=== PATIENT | female | born 1995 | race Caucasian/White ===

== ENCOUNTER 2022-04-11 07:16 | Emergency (ER) | payer MEDICAID ==
[~2022-04-11] VITALS: Ht 162.6 cm; Wt 68.0 kg
[2022-04-11 07:23] VITALS: BP_SYST 107
--- NOTE | 2022-04-11 07:30 | NUR ---
Placed in room 05 . Placed on cardiac exercise physiologist, blood pressure machine and pulse oximeter. To gown for exam. Side rails up. Report given to SURYA LYNN.
--- NOTE | 2022-04-11 07:31 | NUR ---
ER DR. JAIN EXAMINING PT
[2022-04-11 07:53] LABS: BASOPHILS # (AUTO) 0.1 K/uL (0.0-0.2); BASOPHILS % (AUTO) 0.4 % (0.0-2.0); HEMATOCRIT 34.6 % (36-48); HEMOGLOBIN 11.4 g/dL (12.0-16.0); LYMPHOCYTES # (AUTO) 1.6 K/uL (1.0-5.5); LYMPHOCYTES % (AUTO) 10.2 % (20.5-51.5); MEAN CORPUSCULAR HEMOGLOBIN 29 pg (27-31); MEAN CORPUSCULAR HGB CONC 33 % (32-36); MEAN CORPUSCULAR VOLUME 89 fL (79.0-98.0); MONOCYTES # (AUTO) 0.7 K/uL (0.0-1.0); MONOCYTES % (AUTO) 4.8 % (1.7-9.3); NEUTROPHILS % (AUTO) 84.6 % (40.0-70.0); PLATELET COUNT (AUTO) 294 K/uL (130-430); RED CELL DISTRIBUTION WIDTH 12.9 % (9.0-15.0); WHITE BLOOD COUNT (AUTO) 15.3 K/uL (4.8-10.8)
[2022-04-11 08:11] LABS: CALCIUM 8.6 mg/dL (8.4-11.0); CREATININE 0.57 mg/dL (0.55-1.30)
[2022-04-11 08:15] LABS: ALBUMIN 3.4 g/dL (3.4-4.8); C-REACTIVE PROTEIN QUANT 12.4 mg/dL (0-0.5); TOTAL BILIRUBIN 0.5 mg/dL (0.0-1.0)
[2022-04-11] MEDS ORDERED: cefTRIAXone 1 GM in LIDOCAINE 1%, 20 ML MDV 2.1 ML IM ONE (10:00)
[2022-04-11] MEDS ORDERED: IBUP-1969 PO (10:22)
[2022-04-11] MEDS ORDERED: CLIN-142 PO (10:22)
[2022-04-11 10:26] LABS: BARBITURATE, URINE NEGATIVE (NEG <=200); BENZODIAZEPINE, URINE NEGATIVE (NEG <=150); CANNABINOID, URINE NEGATIVE (NEG <=50); COCAINE, URINE NEGATIVE (NEG <=150); METHAMPHETAMINES SCREEN,URINE NEGATIVE (NEG <=500); OPIATE, URINE NEGATIVE (NEG <=100); PHENCYCLIDINE SCREEN,URINE NEGATIVE (NEG <=25); UR TRICYCLIC ANTIDEPRESSANTS NEGATIVE (NEG <=300); URINE AMPHETAMINE NEGATIVE (NEG <=500); URINE METHADONE NEGATIVE (NEG <=200); URINE OXYCODONE SCREEN NEGATIVE (NEG <=100); URINE PROPOXYPHENE SCREEN NEGATIVE (NEG <=300)
[2022-04-11 12:18] VITALS: BP_SYST 126
--- NOTE | 2022-04-11 12:19 | NUR ---
Patient given written and verbal discharge instructions and verbalizes understanding. ER MD DR JAIN discussed with patient the results and treatment provided. Patient in stable condition. ID arm band removed. Rx of CLINDAMYCIN, MOTRIN given. Patient educated on pain management and to follow up with PMD. Pain Scale 4/10. Opportunity for questions provided and answered. Medication side effect fact sheet provided.
== END 2022-04-11 12:18 | disposition home or self-care (01) ==
LOC: SED 07:16
DX: R10.30 Lower abdominal pain, unspecified (principal); N61.0 Mastitis without abscess; R50.9 Fever, unspecified; M79.10 Myalgia, unspecified site; Z79.899 Other long term (current) drug therapy
CPT/HCPCS: 99284; 74176; 80307; 80053; 82150; 84703; 83690; 85025; 86140; 36415; 76376; 81025; 96372; 83605; J0696; J2001

== ENCOUNTER 2022-12-19 23:35 | Emergency (ER) | payer MEDICAID ==
[~2022-12-19] VITALS: Ht 162.6 cm; Wt 72.6 kg
[~2022-12-19 23:35] MED LIST: CLIN-142 PO; IBUP-1969 PO
[2022-12-19 23:48] VITALS: BP_SYST 113; PULSE 74; RESP 20; TEMP 97.9; O2SAT 97
[2022-12-20 01:00] LABS: BILIRUBIN,URINE NEGATIVE (NEGATIVE); BLOOD, URINE NEGATIVE (NEGATIVE); CLARITY/URINE Clear (CLEAR); COLOR,URINE YELLOW (YELLOW); GLUCOSE,URINE NEGATIVE (NEGATIVE); KETONES,URINE NEGATIVE (NEGATIVE); LEUKOCYTE ESTERASE ,URINE NEGATIVE (NEGATIVE); NITRITE, URINE NEGATIVE (NEGATIVE); PH,URINE 6.5 (5.0-8.0); PROTEIN URINE NEGATIVE (NEGATIVE); UROBILINOGEN,URINE 0.2 (0.2-1.0)
[2022-12-20] MEDS ORDERED: ONDANSETRON 4 MG ODT TAB PO ONE (01:45)
[2022-12-20] MEDS ORDERED: DOCUSATE SODIUM 100 MG CAPSULE PO ONE (01:45)
[2022-12-20] MEDS ORDERED: POLYETHYLENE GLYCOL 3350, 17 GM/ POWD.PACK PO ONE (01:45)
[2022-12-20] MEDS ORDERED: cephALEXin 500 MG CAPSULE PO ONE (01:45)
[2022-12-20] MEDS ORDERED: DICYCLOMINE HCL 10 MG CAPSULE PO ONE (01:45)
[2022-12-20 01:52] LABS: BASOPHILS # (AUTO) 0.1 K/uL (0.0-0.2); BASOPHILS % (AUTO) 0.6 % (0.0-2.0); EOSINOPHILS # (AUTO) 0.1 K/uL (0.0-0.4); EOSINOPHILS % (AUTO) 1.1 % (0.0-4.0); HEMATOCRIT 37.6 % (36-48); HEMOGLOBIN 12.5 g/dL (12.0-16.0); LYMPHOCYTES # (AUTO) 3.6 K/uL (1.0-5.5); LYMPHOCYTES % (AUTO) 31.5 % (20.5-51.5); MEAN CORPUSCULAR HEMOGLOBIN 30 pg (27-31); MEAN CORPUSCULAR HGB CONC 33 % (32-36); MEAN CORPUSCULAR VOLUME 89 fL (79.0-98.0); MONOCYTES # (AUTO) 0.6 K/uL (0.0-1.0); MONOCYTES % (AUTO) 5.5 % (1.7-9.3); NEUTROPHILS % (AUTO) 61.3 % (40.0-70.0); PLATELET COUNT (AUTO) 343 K/uL (130-430); RED BLOOD CELL COUNT(AUTO) 4.24 MIL/uL (4.2-6.2); WHITE BLOOD COUNT (AUTO) 11.4 K/uL (4.8-10.8)
[2022-12-20] MEDS ORDERED: DICYCLOMINE HCL 10 MG CAPSULE ONE (02:01)
[2022-12-20] MEDS ORDERED: POLYETHYLENE GLYCOL 3350, 17 GM/ POWD.PACK ONE (02:02)
[2022-12-20 02:08] LABS: CALCIUM 9.1 mg/dL (8.4-11.0); CREATININE 0.69 mg/dL (0.55-1.30); POTASSIUM 3.9 mmol/L (3.5-5.1); TOTAL BILIRUBIN 0.2 mg/dL (0.0-1.0); TOTAL PROTEIN, SERUM 7.5 g/dL (6.4-8.3)
[2022-12-20] MEDS ORDERED: SIME125C PO (02:15)
[2022-12-20] MEDS ORDERED: DOCU-144 PO (02:15)
[2022-12-20] MEDS ORDERED: POLY119P3 PO (02:15)
[2022-12-20 03:18] VITALS: BP_SYST 111; PULSE 83; RESP 20; TEMP 97.7; O2SAT 98
== END 2022-12-20 03:18 | disposition home or self-care (01) ==
LOC: SED 23:35
DX: N72 Inflammatory disease of cervix uteri (principal); K59.00 Constipation, unspecified; R10.2 Pelvic and perineal pain; R10.32 Left lower quadrant pain; Z79.899 Other long term (current) drug therapy
CPT/HCPCS: 36415; 74018; 80053; 81003; 81025; 83690; 85025; 99285

== ENCOUNTER 2023-02-27 21:25 | Emergency (ER) | payer MEDICAID ==
[~2023-02-27] VITALS: Ht 162.6 cm; Wt 71.2 kg
[~2023-02-27 21:25] MED LIST changes: +DOCU-144 PO; +POLY119P3 PO; +SIME125C PO
[2023-02-27 21:45] VITALS: BP_SYST 120; PULSE 99; RESP 18; TEMP 98.7; O2SAT 98
[2023-02-27] MEDS ORDERED: cefTRIAXone 1 GM in LIDOCAINE 1%, 20 ML MDV 2.1 ML IM ONE (22:30)
[2023-02-27] MEDS ORDERED: KETOROLAC TROMETHAMINE 60 MG/2 ML VIAL IM ONE (22:30)
[2023-02-27] MEDS ORDERED: AUG875 PO (23:03)
[2023-02-27 23:07] VITALS: BP_SYST 121; PULSE 98; RESP 18; TEMP 98.7; O2SAT 98
== END 2023-02-27 23:07 | disposition home or self-care (01) ==
LOC: SED 21:25
DX: J02.9 Acute pharyngitis, unspecified (principal); M79.10 Myalgia, unspecified site; R50.9 Fever, unspecified; R09.81 Nasal congestion; Z79.899 Other long term (current) drug therapy
CPT/HCPCS: 99284; 96372; J0696; J1885; J2001

== ENCOUNTER 2023-05-13 16:34 | Emergency (ER) | payer MEDICAID ==
[~2023-05-13] VITALS: Ht 162.6 cm; Wt 72.6 kg
[~2023-05-13 16:34] MED LIST changes: +AUG875 PO
[2023-05-13 16:55] VITALS: BP_SYST 126; PULSE 86; RESP 17; TEMP 98.1; O2SAT 99
[2023-05-13] MEDS ORDERED: OLOP2.5D11 OP ×2 (16:57→17:08)
[2023-05-13] MEDS ORDERED: OFLO5DRO6 OP ×2 (16:57→17:08)
[2023-05-13 17:21] VITALS: BP_SYST 126; PULSE 86; RESP 17; TEMP 98.1; O2SAT 99
== END 2023-05-13 17:21 | disposition home or self-care (01) ==
LOC: SED 16:34
DX: H10.89 Other conjunctivitis (principal); H57.89 Other specified disorders of eye and adnexa; Z79.899 Other long term (current) drug therapy
CPT/HCPCS: 99283

== ENCOUNTER 2023-05-16 13:48 | Emergency (ER) | payer MEDICAID ==
[~2023-05-16] VITALS: Ht 162.6 cm; Wt 72.6 kg
[~2023-05-16 13:48] MED LIST changes: +OFLO5DRO6 OP; +OLOP2.5D11 OP
[2023-05-16 14:10] VITALS: BP_SYST 124; PULSE 93; RESP 16; TEMP 98.1; O2SAT 96
[2023-05-16] MEDS ORDERED: CYCLOGYL LEFT EYE (16:49)
[2023-05-16] MEDS ORDERED: PREDEYE1% LEFT EYE (16:50)
[2023-05-16] MEDS ORDERED: AUG875 PO (16:53)
[2023-05-16 17:10] VITALS: BP_SYST 124; PULSE 93; RESP 16; TEMP 98.1; O2SAT 96
[2023-05-16 17:32] LABS: COVID19 ANTIGEN SOFIA FIA NEGATIVE (NEGATIVE); INFLUENZA TYPE A Negative (NEGATIVE); INFLUENZA TYPE B NEGATIVE (NEGATIVE)
== END 2023-05-16 17:10 | disposition home or self-care (01) ==
LOC: SED 13:48
DX: L03.213 Periorbital cellulitis (principal); H20.00 Unspecified acute and subacute iridocyclitis; Z79.899 Other long term (current) drug therapy; Z20.822 Contact with and (suspected) exposure to COVID-19
CPT/HCPCS: 36415; 99283

== ENCOUNTER 2023-08-27 03:11 | Emergency (ER) | payer MEDICAID ==
[~2023-08-27] VITALS: Ht 162.6 cm; Wt 70.3 kg
[~2023-08-27 03:11] MED LIST changes: +CYCLOGYL LEFT EYE; +PREDEYE1% LEFT EYE
[2023-08-27 03:23] VITALS: BP_SYST 107; PULSE 88; RESP 16; TEMP 97.9; O2SAT 99
[2023-08-27 04:19] LABS: BILIRUBIN,URINE NEGATIVE (NEGATIVE); BLOOD, URINE NEGATIVE (NEGATIVE); CLARITY/URINE CLEAR (CLEAR); COLOR,URINE YELLOW (YELLOW); GLUCOSE,URINE NEGATIVE (NEGATIVE); KETONES,URINE NEGATIVE (NEGATIVE); LEUKOCYTE ESTERASE ,URINE NEGATIVE (NEGATIVE); NITRITE, URINE NEGATIVE (NEGATIVE); PROTEIN URINE NEGATIVE (NEGATIVE); UROBILINOGEN,URINE 0.2 (0.2-1.0)
[2023-08-27 04:21] LABS: CALCIUM 9.3 mg/dL (8.4-11.0); CREATININE 0.92 mg/dL (0.55-1.30); POTASSIUM 3.6 mmol/L (3.5-5.1)
[2023-08-27 04:23] LABS: BASOPHILS # (AUTO) 0.1 K/uL (0.0-0.2); BASOPHILS % (AUTO) 0.6 % (0.0-2.0); EOSINOPHILS # (AUTO) 0.1 K/uL (0.0-0.4); EOSINOPHILS % (AUTO) 0.4 % (0.0-4.0); HEMOGLOBIN 12.2 g/dL (12.0-16.0); LYMPHOCYTES # (AUTO) 3.4 K/uL (1.0-5.5); LYMPHOCYTES % (AUTO) 25.2 % (20.5-51.5); MEAN CORPUSCULAR HEMOGLOBIN 31 pg (27-31); MEAN CORPUSCULAR HGB CONC 34 % (32-36); MEAN CORPUSCULAR VOLUME 91 fL (79.0-98.0); MONOCYTES # (AUTO) 0.4 K/uL (0.0-1.0); MONOCYTES % (AUTO) 3.3 % (1.7-9.3); NEUTROPHILS # (AUTO) 9.5 K/uL (1.8-7.7); NEUTROPHILS % (AUTO) 70.5 % (40.0-70.0); PLATELET COUNT (AUTO) 337 K/uL (130-430); RED BLOOD CELL COUNT(AUTO) 3.96 MIL/uL (4.2-6.2); RED CELL DISTRIBUTION WIDTH 12.9 % (9.0-15.0); WHITE BLOOD COUNT (AUTO) 13.4 K/uL (4.8-10.8)
[2023-08-27] MEDS: HYDROcodone/ACETAMIN 5-325 MG TAB (NORCO/ VICODIN) PO ONE (04:38)
[2023-08-27 06:09] LABS: SERUM HCG (QUALITATIVE) NEGATIVE (NEGATIVE)
[2023-08-27 06:10] VITALS: BP_SYST 107; PULSE 88; RESP 16; TEMP 97.9; O2SAT 99
[2023-08-27] MEDS ORDERED: HYDR-3917 PO (07:02)
== END 2023-08-27 07:10 | disposition home or self-care (01) ==
LOC: SED 03:11
DX: N83.201 Unspecified ovarian cyst, right side (principal); R10.32 Left lower quadrant pain; M54.50 Low back pain, unspecified; Z79.899 Other long term (current) drug therapy; Z79.2 Long term (current) use of antibiotics
CPT/HCPCS: 36415; 80048; 81001; 81003; 81025; 84703; 85025; 99284